=== PATIENT | male | born 1960 ===

== ENCOUNTER 2024-11-24 12:15 | Inpatient (IN) | payer OTHER ==
[~2024-11-24] VITALS: Ht 243.8 cm; Wt 65.8 kg
[2024-11-24] MEDS ORDERED: ZESTRIL40 M1 (13:51)
[2024-11-24 13:52] VITALS: BP 127/73
[2024-12-02] MEDS ORDERED: LIDOCAINE HCL 1%/EPINEPHRINE 20ML VIAL IJ ONE (12:45)
[2024-12-02] MEDS ORDERED: CEFTRIAXONE SODIUM 2,000 MG VIAL IV ONE (12:45)
[2024-12-02] MEDS ORDERED: METRONIDAZOLE/SODIUM CHLORIDE 500 MG/100 ML PIGGYBACK IV ONE ×2 (12:45→18:42)
[2024-12-02] MEDS ORDERED: BUPIVACAINE HCL/PF 0.25% 30ML VIAL InF ONE (12:45)
[2024-12-02] MEDS ORDERED: BUPIVACAINE HCL/MPF 0.5% 30ML VIAL ONE (12:57)
[2024-12-02] MEDS ORDERED: ENALAPRILAT DIHYDRATE 1.25 MG/ML VIAL IV ONE (13:17)
[2024-12-02] MEDS ORDERED: SUGAMMADEX SODIUM 200 MG/2 ML VIAL IV ONE (14:57)
[2024-12-02] MEDS ORDERED: MORPHINE SULFATE 4 MG/ML CARTRIDGE IV PRN (15:30)
[2024-12-02] MEDS ORDERED: RINGERS SOLUTION,LACTATED 1,000 ML IV SCH (15:30)
[2024-12-02] MEDS ORDERED: OxyCODONE HCL 5 MG TABLET (ROXICODONE) PO PRN (15:30)
[2024-12-02] MEDS ORDERED: ONDANSETRON HCL 2 MG/ML VIAL IV PRN (15:30)
[2024-12-02] MEDS ORDERED: ENALAPRILAT DIHYDRATE 1.25 MG/ML VIAL IV PRN (16:00)
[2024-12-02] MEDS ORDERED: MORPHINE SULFATE 4 MG/ML VIAL IV ONE ×2 (16:05→16:35)
[2024-12-02] MEDS ORDERED: METRONIDAZOLE/SODIUM CHLORIDE 500 MG/100 ML PIGGYBACK IV SCH (17:00)
[2024-12-02] MEDS ORDERED: GABAPENTIN 300 MG CAPSULE PO SCH (17:00)
[2024-12-02] MEDS ORDERED: HYOSCYAMINE SULFATE 0.125 MG TAB.SUBL SL SCH (17:00)
[2024-12-02] MEDS ORDERED: hydrALAZINE HCL 20 MG VIAL ONE (17:03)
[2024-12-02] MEDS ORDERED: ACETAMINOPHEN 500 MG GEL..CAP PO SCH (18:00)
[2024-12-02 19:44] VITALS: BP 127/73; O2SAT 95
[2024-12-02] MEDS ORDERED: FAMOTIDINE/PF 20 MG/2 ML VIAL IV PUSH SCH (21:00)
[2024-12-02] MEDS ORDERED: CIPROFLOXACIN IN 5 % DEXTROSE 400 MG/200 ML PIGGYBAG IV SCH (21:00)
[2024-12-03 00:41] VITALS: BP 135/83; O2SAT 100
[2024-12-03 07:37] LABS: HEMATOCRIT 48.6 % (39.0-48.0); HEMOGLOBIN 16.2 g/dL (13-16.00); MEAN CORPUSCULAR HEMOGLOBIN 28.7 pg (27.00-32.0); MEAN CORPUSCULAR HGB CONC 33.4 g/dl (32.0-36.0); PLATELET COUNT 257 K/uL (150-450); RED BLOOD COUNT 5.65 M/uL (4.00-6.00); RED CELL DISTRIBUTION WIDTH 19.5 % (11.5-14.5)
[2024-12-03 08:00] VITALS: BP 169/93; O2SAT 94
[2024-12-03 08:23] LABS: ALBUMIN 2.9 gm/dL (3.4-5.0); CREATININE SERUM 1.2 mg/dL (0.70-1.30); GFR 60.95; MAGNESIUM 1.6 mg/dL (1.8-2.4); PHOSPHOROUS 3.6 mg/dL (2.5-4.9); POTASSIUM 4.85 mEq/L (3.5-5.1)
[2024-12-03] MEDS ORDERED: LISINOPRIL 40 MG TABLET PO SCH (09:00)
[2024-12-03] MEDS ORDERED: LACTOBACILLUS ACIDOPHILUS 1 CAP CAP PO SCH (09:00)
[2024-12-03] MEDS ORDERED: AMLODIPINE BESYLATE 2.5 MG TABLET PO SCH (09:00)
[2024-12-03] MEDS ORDERED: TAMSULOSIN HCL 0.4 MG CAP PO SCH (09:00)
[2024-12-03 16:29] VITALS: BP 160/90; O2SAT 95
[2024-12-03] MEDS ORDERED: ENOXAPARIN SODIUM 40 MG/0.4 ML SYRINGE SUBCUTANEO SCH (17:00)
[2024-12-03] MEDS ORDERED: POLYETHYLENE GLYCOL 3350 17 GM BLIST.PACK PO SCH (17:00)
[2024-12-03 20:00] VITALS: BP 190/110; O2SAT 95
[2024-12-03 22:29] VITALS: BP 180/96; O2SAT 95
[2024-12-03] MEDS ORDERED: DILTIAZEM HCL 125MG/25ML VIAL IV ONE (22:46)
[2024-12-03] MEDS ORDERED: DILTIAZEM HCL 100 MG IV SCH (23:00)
[2024-12-03] MEDS ORDERED: DILTIAZEM HCL 125 MG in 0.9 % SODIUM CHLORIDE 100 ML IV SCH (23:30)
[2024-12-04 00:30] VITALS: BP 177/102; O2SAT 95
[2024-12-04 06:46] VITALS: BP 158/91
[2024-12-04] MEDS ORDERED: AMLODIPINE BESYLATE 5 MG TABLET PO SCH (09:00)
[2024-12-04] MEDS ORDERED: ENOXAPARIN SODIUM 40 MG/0.4 ML SYRINGE SUBCUTANEO SCH (09:00)
[2024-12-04 09:08] VITALS: BP 167/93; O2SAT 94
[2024-12-04] MEDS ORDERED: DOXAZOSIN MESYLATE 4 MG TABLET PO STA (12:32)
[2024-12-04] MEDS ORDERED: AMLODIPINE BESYLATE 5 MG TABLET PO STA (12:47)
[2024-12-04 16:00] VITALS: BP 155/87; O2SAT 93
[2024-12-04 20:00] VITALS: BP 120/78; O2SAT 96
[2024-12-05 00:47] VITALS: BP 102/69; O2SAT 96
[2024-12-05 08:00] VITALS: BP 142/86; O2SAT 95
[2024-12-05] MEDS ORDERED: AMLODIPINE BESYLATE 5 MG TABLET PO SCH (09:00)
[2024-12-05] MEDS ORDERED: DOXAZOSIN MESYLATE 4 MG TABLET PO SCH (09:00)
[2024-12-05 17:32] VITALS: BP 150/85; O2SAT 98
[2024-12-06 01:10] VITALS: BP 124/79; O2SAT 99
[2024-12-06 06:51] LABS: PH,URINE 6.5 (5.0-8.0); URINE APPEARANCE Clear; URINE BILIRRUBIN Negative (NEGATIVE); URINE BLOOD Moderate; URINE COLOR Yellow; URINE GLUCOSE Negative (NEGATIVE); URINE LEUKOCYTE Negative; URINE NITRATE Negative; URINE UROBILINOGEN 0.2 E.U./dl
[2024-12-06 06:54] LABS: URINE BACTERIA 34.2 uL (0.0-1933); URINE EPITHELIAL CELLS 2.6 uL (0.0-38.8); URINE RBC 240.5 uL (0.0-20.8)
[2024-12-06 06:55] LABS: URINE CAST 0.14 uL (0.0-1.40); URINE KETONE 40 (NEGATIVE); URINE PROTEIN 100 (NEGATIVE)
[2024-12-06 07:02] LABS: HEMATOCRIT 39.9 % (39.0-48.0); HEMOGLOBIN 12.8 g/dL (13-16.00); MEAN CORPUSCULAR HEMOGLOBIN 28.3 pg (27.00-32.0); MEAN CORPUSCULAR HGB CONC 32.2 g/dl (32.0-36.0); PLATELET COUNT 254 K/uL (150-450); RED BLOOD COUNT 4.53 M/uL (4.00-6.00); RED CELL DISTRIBUTION WIDTH 18.9 % (11.5-14.5)
[2024-12-06 07:38] LABS: CALCIUM 8.3 mg/dL (8.5-10.1); CREATININE SERUM 0.88 mg/dL (0.70-1.30); GFR 87.18; MAGNESIUM 1.9 mg/dL (1.8-2.4); PHOSPHOROUS 2.4 mg/dL (2.5-4.9); POTASSIUM 3.84 mEq/L (3.5-5.1)
[2024-12-06 08:00] VITALS: BP 147/76; O2SAT 95
[2024-12-06] MEDS ORDERED: POTASSIUM PHOS,M-BASIC-D-BASIC 3 MM/ML VIAL IV NR (09:30)
[2024-12-06 16:00] VITALS: BP 159/79; O2SAT 95
[2024-12-07 00:21] VITALS: BP 137/74; O2SAT 98
[2024-12-07 07:14] LABS: HEMOGLOBIN 13.4 g/dL (13-16.00); MEAN CELL VOLUME 86.8 fL (80.0-100.00); MEAN CORPUSCULAR HEMOGLOBIN 29.1 pg (27.00-32.0); MEAN CORPUSCULAR HGB CONC 33.6 g/dl (32.0-36.0); PLATELET COUNT 290 K/uL (150-450); RED BLOOD COUNT 4.61 M/uL (4.00-6.00); RED CELL DISTRIBUTION WIDTH 18.6 % (11.5-14.5)
[2024-12-07 08:00] VITALS: BP 165/95; O2SAT 95
[2024-12-07] MEDS ORDERED: HYOSCYAMINE0.125 M1 SL (13:58)
[2024-12-07] MEDS ORDERED: TAMS0.4C PO (13:59)
[2024-12-07] MEDS ORDERED: INTESTINEX680 M1 PO (13:59)
== END 2024-12-07 14:32 | disposition home or self-care (01) | DRG 330 ==
LOC: O/R 12-02 05:52 → SURH 12-02 10:30
PROVIDERS: Internal Medicine Geriatric Medicine; Surgery; Urology; ADMIT Surgery; ATTEND Surgery
PROC: 0DNW4ZZ Release Peritoneum, Percutaneous Endoscopic Approach (ICD-10-PCS; 2024-12-02)
PROC: 0TBB4ZZ Excision of Bladder, Percutaneous Endoscopic Approach (ICD-10-PCS; 2024-12-02)
PROC: 0TQB0ZZ Repair Bladder, Open Approach (ICD-10-PCS; 2024-12-02)
PROC: 0DJD8ZZ Inspection of Lower Intestinal Tract, Via Natural or Artificial Opening Endoscopic (ICD-10-PCS; 2024-12-02)
PROC: 07BC4ZZ Excision of Pelvis Lymphatic, Percutaneous Endoscopic Approach (ICD-10-PCS; 2024-12-02)
PROC: 0DBE4ZZ Excision of Large Intestine, Percutaneous Endoscopic Approach (ICD-10-PCS; 2024-12-02)
PROC: 0DTN4ZZ Resection of Sigmoid Colon, Percutaneous Endoscopic Approach (ICD-10-PCS; principal; 2024-12-02 10:30)
PROC: 0DBP4ZZ Excision of Rectum, Percutaneous Endoscopic Approach (ICD-10-PCS; 2024-12-02 10:30)
PROC: BW2GYZZ Computerized Tomography (CT Scan) of Pelvic Region using Other Contrast (ICD-10-PCS; 2024-12-06)
DX: C78.5 Secondary malignant neoplasm of large intestine and rectum (principal); I97.89 Other postprocedural complications and disorders of the circulatory system, not elsewhere classified; K57.20 Diverticulitis of large intestine with perforation and abscess without bleeding; K56.50 Intestinal adhesions [bands], unspecified as to partial versus complete obstruction; N32.1 Vesicointestinal fistula; N99.72 Accidental puncture and laceration of a genitourinary system organ or structure during other procedure; C61 Malignant neoplasm of prostate; I10 Essential (primary) hypertension; Z43.3 Encounter for attention to colostomy; I11.9 Hypertensive heart disease without heart failure; I97.3 Postprocedural hypertension